=== PATIENT | male | born 1995 | race Caucasian/White ===

== ENCOUNTER 2022-02-07 13:55 | Emergency (ER) | payer SELFPAY ==
[~2022-02-07] VITALS: Ht 180.3 cm; Wt 61.2 kg
[2022-02-07] MEDS ORDERED: RECTICARE30 GM EXT (15:54)
== END 2022-02-07 16:07 | disposition home or self-care (01) ==
LOC: ER 13:55
DX: K64.4 Residual hemorrhoidal skin tags (principal)
CPT/HCPCS: 99282

== ENCOUNTER 2023-03-03 20:18 | Emergency (ER) | payer OTHER ==
[~2023-03-03] VITALS: Ht 180.3 cm; Wt 63.5 kg
[~2023-03-03 20:18] MED LIST: RECTICARE30 GM EXT
[2023-03-03 20:28] VITALS: BP 125/88
== END 2023-03-03 21:00 | disposition home or self-care (01) ==
LOC: ER 20:18
DX: T65.891A Toxic effect of other specified substances, accidental (unintentional), initial encounter (principal); G40.909 Epilepsy, unspecified, not intractable, without status epilepticus
CPT/HCPCS: 99282

== ENCOUNTER 2024-04-05 09:16 | Day surgery (SDC) | payer OTHER ==
[~2024-04-05] VITALS: Ht 177.8 cm; Wt 61.8 kg
[~2024-04-05 09:16] MED LIST changes: +NS 500 ML IV ONE
[2024-04-05] MEDS ORDERED: CeFAZolin Sodium 2,000 MG VIAL ONE (09:27)
[2024-04-05] MEDS ORDERED: LAMOTRIGINE100 M1 PO (09:39)
[2024-04-05] MEDS ORDERED: FentaNYL Citrate 50 MCG/ML 2 ML Injection ONE ×2 (09:53→13:48)
[2024-04-05] MEDS ORDERED: Midazolam HCl 1MG / ML 2ML Vial ONE (09:53)
[2024-04-05] MEDS ORDERED: propofoL 20 ML IV ONE ×2 (09:53→11:08)
[2024-04-05] MEDS ORDERED: Dexamethasone Sod Phos 10 MG/ML 1ML VIAL ONE (09:54)
[2024-04-05] MEDS ORDERED: Ketorolac Tromethamine 30mg Vial ONE (09:54)
[2024-04-05] MEDS ORDERED: Ondansetron HCl 2 MG / ML 2ML Vial ONE (09:54)
[2024-04-05] MEDS ORDERED: Lactated Ringer's 1,000 ML IV ONE ×2 (09:55→12:30)
[2024-04-05] MEDS ORDERED: Ropivacaine 0.5% HCl/Pf 5 MG/ML 20ML VIAL INJ ONE (11:08)
[2024-04-05] MEDS ORDERED: EPINEPhrine HCl 1 MG/ML 1ML Amp XX ONE (11:08)
[2024-04-05] MEDS ORDERED: OxyCODONE HCL 5 MG TAB ONE (14:15)
[2024-04-05 14:20] VITALS: BP 127/79
== END 2024-04-05 14:48 | disposition home or self-care (01) ==
LOC: ORSCSDS 09:16
PROVIDERS: Orthopaedic Surgery
PROC: 0PSB04Z Reposition Left Clavicle with Internal Fixation Device, Open Approach (ICD-10-PCS; principal; 2024-04-05 10:30)
DX: S42.032K Displaced fracture of lateral end of left clavicle, subsequent encounter for fracture with nonunion (principal)
CPT/HCPCS: A9270; C1762; J0171; J0690; J1100; J1885; J2250; J2405; J2704; J2795; J3010; J7040; J7120